=== PATIENT | male | born 1965 | race Caucasian/White ===

== ENCOUNTER 2018-12-22 11:06 | Emergency (ER) | payer BC ==
[2018-12-22 11:25] VITALS: BP 133/86
--- NOTE | 2018-12-22 11:55 | UC ---
Hand/Wrist HPI - HPI Summary HPI Summary: 53-year-old male comes in with a chief complaint of right hand pain and swelling after punching a solid object 2 days ago. He's had swelling and pain since that time. He does have some difficulty closing his fingers all the way primarily his right fifth finger. No skin break. No complaint of other injury besides the right hand. - History Of Current Complaint Chief Complaint: UCUpperExtremity Stated Complaint: RIGHT HAND INJURY Time Seen by Provider: 12/22/18 11:54 Pain Intensity: 0 - Allergies/Home Medications Allergies/Adverse Reactions: Allergies Allergy/AdvReac Type Severity Reaction Status Date / Time No Known Allergies Allergy Verified 12/22/18 11:20 Home Medications: Home Medications Naproxen Sodium [Aleve] 440 mg PO BID PRN 12/22/18 [History Confirmed 12/22/18] PMH/Surg Hx/FS Hx/Imm Hx Previously Healthy: Yes - Surgical History Surgical History: None - Family History Known Family History: Positive: Unknown - Social History Alcohol Use: Occasionally Substance Use Type: None Smoking Status (MU): Current Every Day Smoker Type: eCigarettes Amount Used/How Often: daily Length of Time of Smoking/Using Tobacco: 25 YRS Have You Smoked in the Last Year: Yes Review of Systems All Other Systems Reviewed And Are Negative: Yes Skin: Positive: Bruising - RT HAND Eyes: Positive: Negative ENT: Positive: Negative Respiratory: Positive: Negative Cardiovascular: Positive: Negative Gastrointestinal: Positive: Negative Motor: Positive: Decreased ROM Neurovascular: Positive: Negative Musculoskeletal: Positive: Other: - SEE HPI Neurological: Positive: Negative Psychological: Positive: Negative Is Patient Immunocompromised?: No Physical Exam Triage Information Reviewed: Yes Appearance: Well-Appearing, Well-Nourished, Pain Distress - MILD WITH ROM RT HAND Vital Signs: Initial Vital Signs Temp 98.3 F 12/22/18 11:21 Pulse 75 12/22/18 11:21 Resp 15 12/22/18 11:21 BP 133/86 12/22/18 11:21 Pulse Ox 99 12/22/18 11:21 Vital Signs Reviewed: Yes Eye Exam: Normal Eyes: Positive: Conjunctiva Clear Neck: Positive: Supple Respiratory: Positive: No respiratory distress Musculoskeletal: Positive: Other: - Right hand is swollen primarily distal metacarpal area and the third through fifth fingers. Most tender over the distal fifth metacarpal. No sensation deficit normal capillary refill. Patient does have difficulty closing his fingers completely. Neurological: Positive: Alert Psychological: Positive: Age Appropriate Behavior Skin: Positive: Other - Ecchymosis right hand mostly in the distal metacarpals 3 through 5. No skin break. Hand/Wrist Course/Dx - Course Course Of Treatment: Satellite Installation Technician: Germán Ulloa Daniel, ([id number]) Dry Wall Plasterer: MARIANN ( MARIANN) Report Date: 12/22/2018 11:27:00 Report Status: Final ====== Start of Report Content Patient Name: JULI KABA Medical Record#: [id number] Ordering Physician: Sal Jha MD Acct.#: [id number] : Age: 53 Sex: M Location: [facility] Exam Date: 12/22/18 1127 ADM Status: [facility] ER Order Information: HAND - RIGHT MINIMUM 3 VIEWS Accession Number: [id number] CPT: 23437 HISTORY: PAIN S/P TRAUMA . COMPARISONS : None relevant available at the time of dictation. VIEWS: 4, Frontal, lateral, and oblique views of the right hand FINDINGS: BONE DENSITY: Normal. BONES: There is an angulated fracture with displacement of the distal fifth metacarpal. There is approximately 90 degrees of volar angulation. JOINTS: There is no arthropathy. ALIGNMENT: There is no dislocation. SOFT TISSUES: Unremarkable. OTHER FINDINGS: None. IMPRESSION: ANGULATED FRACTURE OF THE DISTAL FIFTH METACARPAL. <Electronically signed by Germán Ulloa MD in OV> 12/22/18 1145 Dictated By: Germán Ulloa MD Dictated Date/Time: 12/22/18 114 Transcribed Date/Time: 12/22/18 114 Copy to: CC:[facility]; Breana Osorio MD; Sal Jha MD Imaging - [facility] - [facility] Imaging - [facility] [address] [place], [place] [id number] [place] [id number] [place] [id number] ph ) ph ([phone]) ph ([phone]) End of Report Content ==== I discussed the x-rays with the patient and his . I called to orthopedics Dr. De La Rosa's office and they can see him within the hour. I did not splint the patient because he will be seeing orthopedics within the hour. The plan is to follow-up with orthopedics now. - Differential Dx/Diagnosis Provider Diagnosis: Closed boxer's fracture Discharge ED - Sign-Out/Discharge Documenting (check all that apply): Patient Departure All imaging exams completed and their final reports reviewed: Yes - Discharge Plan Condition: Stable Disposition: HOME Patient Education Materials: Boxer Fracture (ED) Referrals: Breana Osorio MD [Primary Care Provider] - Abel De La Rosa MD [Medical Doctor] - Additional Instructions: FOLLOW UP WITH DR [facility] AT 1PM TODAY. - Billing Disposition and Condition Condition: STABLE Disposition: Home
== END 2018-12-22 12:15 | disposition home or self-care (01) ==
LOC: UCCORT 11:06
DX: S62.306A Unspecified fracture of fifth metacarpal bone, right hand, initial encounter for closed fracture (principal); W22.8XXA Striking against or struck by other objects, initial encounter; F17.290 Nicotine dependence, other tobacco product, uncomplicated; Y92.9 Unspecified place or not applicable
CPT/HCPCS: 99211; G0463

== ENCOUNTER 2018-12-25 09:55 | Day surgery (SDC) | payer BC ==
[~2018-12-25 09:55] MED LIST: Buffered Lidocaine 1% SYRIN* 1 ML/SYRINGE INTRADERM ONE; Dexamethasone IV* 4 MG/ML 1 ML (4 MG) IV SLOW PU ONE; Famotidine IV* 10 MG/ML 2 ML (20 mg) IV ONE; Lactated Ringers 1000 ML Bag* 1,000 ML IV SCH
[2018-12-25] MEDS ORDERED: Dexamethasone IV* 4 MG/ML 1 ML (4 MG) ONE (10:34)
[2018-12-25] MEDS ORDERED: Famotidine IV* 10 MG/ML 2 ML (20 mg) ONE (10:34)
[2018-12-25] MEDS ORDERED: ceFAZolin 2 GM PREMIX in ORs 2 GM/50 ML BAG ONE (10:34)
[2018-12-25] MEDS ORDERED: Buffered Lidocaine 1% SYRIN* 1 ML/SYRINGE INTRADERM ONE (10:56)
[2018-12-25] MEDS ORDERED: Propofol* 10 MG/ML 20 ML BTL ONE (12:00)
[2018-12-25] MEDS ORDERED: Lidocaine 2% PF * 5 ML VIAL ONE (12:00)
[2018-12-25] MEDS ORDERED: fentaNYL* 50 MCG/ML 2 ML VIAL (100 MCG VIAL) ONE (12:00)
[2018-12-25] MEDS ORDERED: Bupivacaine 0.25% SDV* 30 ML ONE (12:20)
[2018-12-25] MEDS ORDERED: Ketorolac INJ* 30 MG/ML 1 ML VIAL IV PRN (12:23)
[2018-12-25] MEDS ORDERED: fentaNYL* 50 MCG/ML 2 ML VIAL (100 MCG VIAL) IV PRN (12:23)
[2018-12-25] MEDS ORDERED: DiMENhydriNATE IV* 50 MG/ML VIAL IV PUSH PRN (12:23)
[2018-12-25] MEDS ORDERED: Naloxone* 0.4 MG/ML 1 ML VIAL IV PRN (12:23)
[2018-12-25] MEDS ORDERED: Ondansetron INJ* 2 MG/ML VIAL ONE (13:10)
[2018-12-25] MEDS ORDERED: Ibuprofen TAB* 600 MG ONE (14:10)
[2018-12-25 14:17] VITALS: BP 114/69
--- NOTE | 2018-12-25 19:31 | OP ---
DATE OF OPERATION: 12/25/18 - [facility] DATE OF : 69 SURGEON: Car Cat MD MOMD TEACHER: KRISTYN Chaves ANESTHESIOLOGIST: Dr. Peterson. ANESTHESIA: General. PRE-OP DIAGNOSIS: Right fifth metacarpal displaced fracture. POST-OP DIAGNOSIS: Right fifth metacarpal displaced fracture. OPERATIVE PROCEDURE: Closed reduction and percutaneous fixation of right fifth metacarpal fracture. INDICATIONS: Mychal has a very displaced distal third metacarpal shaft fracture. I talked to him about his treatment options. I told him I would try to treat this percutaneously. He understands and wishes to proceed. ESTIMATED BLOOD LOSS: 2 mL. COMPLICATIONS: None. FINDINGS: See above and below. DESCRIPTION OF PROCEDURE: Mychal was seen in the preoperative holding area. The correct site, side, and procedure were identified. We came back to the operating room. The arm was prepped and draped in the usual fashion. A time- out was performed. I went ahead and brought in the mini C-arm. I closed reduced the fracture. I took one 0.062 K-wire and passed it retrograde starting just on the dorsal aspect of the metacarpal head down to the fracture site, I reduced the fracture. I passed the wire all the way down to the subchondral bone. The bone was in perfect alignment. I supplemented this with another 0.045 K-wire in similar fashion, passed retrograde down the canal, the bone. At this point, everything was in perfect alignment. The pins were bent and clipped. They were dressed with Xeroform, 4x4s, sterile Webril, and then ulnar gutter splint in the intrinsic plus position was applied. He was then taken to the recovery room in stable condition. [id number]/[facility] #: [id number] MTDD
== END 2018-12-25 14:35 | disposition home or self-care (01) ==
LOC: OREAST 09:55
PROVIDERS: ATTEND Orthopaedic Surgery Hand Surgery
DX: S62.326A Displaced fracture of shaft of fifth metacarpal bone, right hand, initial encounter for closed fracture (principal); Z87.891 Personal history of nicotine dependence; E78.5 Hyperlipidemia, unspecified; W22.8XXA Striking against or struck by other objects, initial encounter; Y92.9 Unspecified place or not applicable
CPT/HCPCS: 76000; A9270-GY; C1776; J0690; J1100; J2405; J2704; J3010; J3490